=== PATIENT | female | born 1950 | race Caucasian/White ===

== ENCOUNTER 2020-12-11 13:09 | Observation (INO) ==
[2020-12-11] MEDS ORDERED: DILTIAZEM 50 MG/10 ML VIAL IV STA (13:36)
[2020-12-11] MEDS ORDERED: SODIUM CHLORIDE 0.9% 500 ML IV STA (13:36)
[2020-12-11] MEDS ORDERED: DILTIAZEM 100 MG VIAL.ADD IV ONE (13:37)
[2020-12-11] MEDS ORDERED: ONDANSETRON 4 MG/2 ML VIAL IV STA (13:37)
[2020-12-11] MEDS ORDERED: DILTIAZEM 25 MG/5 ML VIAL IV ONE (13:38)
[2020-12-11] MEDS: DILTIAZEM INJ 100 MG in SODIUM CHLORIDE 0.9% 100 ML IV SCH (13:55)
[2020-12-11 15:48] LABS: Basophils % 0.5 % (0.0-0.8); Eosinophils % 0.2 % (0.00-10.9); Hematocrit 36.1 VOL% (35.7-47.0); Hemoglobin 11.1 GM/DL (12.0-16.0); Immature Granulocytes % 0.5 %; Immature Granulocytes Absolute 0.02 #; Lymphocytes # 0.7 10*3/uL (1.4-4.0); Lymphocytes % 16.2 % (21.3-54.2); Mean Corpuscular HGB Conc 30.7 GM/DL (32-36); Mean Corpuscular Volume 90.9 FL (87-102); Mean Platelet Volume 10.1 FL (9.6-12.0); Monocytes % 10.8 % (1.7-12.7); Neutrophils % 71.8 % (38.7-73.9); Platelet Count 150 T/CUMM (130-400); Red Blood Count 3.97 MC/CUMM (3.8-5.5); Red Cell Distribution Width 14.5 % (9.3-17.3); White Blood Count 4.3 T/CUMM (4-12)
[2020-12-11 15:59] LABS: Bacteria,Urine Moderate /HPF (Few); Bilirubin,Urine Negative (Negative); Blood, Urine Large mg/dL (Negative); Glucose,Urine (UA) >=500 mg/dL (Negative); Ketones,Urine 20 mg/dL (Negative); Mucus,Urine Occasional /LPF (Occasional); Nitrite,Urine Negative (Negative); Protein,Urine 30 MG/DL; RBC,Urine 40 /HPF (0-4); Urine Appearance Slightly Hazy (Clear); Urine Color Yellow (Yellow); WBC,Urine 6 /HPF (0-6)
[2020-12-11 16:09] LABS: Calcium 8.4 MG/DL (8.5-10.1); Osmolality,Calculated 279.5 MOS/KG (273-304)
[2020-12-11] MEDS ORDERED: cefTRIAXone 1,000 MG in SODIUM CHLORIDE 0.9% 100 ML IV STA (16:16)
[2020-12-11 17:14] LABS: Atypical Lymphocytes Few; Band Neutrophils 2 % (0-10); Lymphocytes 21 % (20-55); Reactive Lymphocytes Few; Segmented Neutrophils 76 % (50-85); Total Cells Counted 100; Toxic Granulation 1+
[2020-12-11] MEDS ORDERED: GLUCAGON 1 MG VIAL IM PRN (17:14)
[2020-12-11] MEDS ORDERED: ONDANSETRON 4 MG/2 ML VIAL IV PRN (17:14)
[2020-12-11] MEDS ORDERED: DEXTROSE 50% 25 GM/50 ML VIAL IV PRN (17:14)
[2020-12-11] MEDS ORDERED: hydrALAZINE 20 MG/1 ML VIAL IV PRN (17:14)
[2020-12-11 17:15] LABS: Hypochromasia Slight; Microcytosis Slight; Ovalocytes Few; Platelet Estimate Normal
[2020-12-11 19:17] LABS: INR 2.9; PT Patient Result 29.1 SECS (9.8-11.9); Partial Thromboplastin Time 44.4 SECS (23.9-33.8)
[2020-12-11] MEDS: WARFARIN 10 MG TABLET PO SCH (21:12)
[2020-12-11] MEDS: INSULIN LISPRO 100 UNIT/ML SUBCUT SCH (21:14)
[2020-12-12 05:57] LABS: Basophils % 0.7 % (0.0-0.8); Eosinophils # 0.1 10*3/uL (0.0-0.87); Eosinophils % 2.9 % (0.00-10.9); Hematocrit 32.9 VOL% (35.7-47.0); Hemoglobin 10.5 GM/DL (12.0-16.0); Immature Granulocytes % 0.7 %; Immature Granulocytes Absolute 0.03 #; Lymphocytes # 1.2 10*3/uL (1.4-4.0); Lymphocytes % 25.7 % (21.3-54.2); Mean Corpuscular HGB Conc 31.9 GM/DL (32-36); Mean Corpuscular Volume 88.9 FL (87-102); Mean Platelet Volume 9.9 FL (9.6-12.0); Monocytes % 14.4 % (1.7-12.7); Neutrophils % 55.6 % (38.7-73.9); Platelet Count 154 T/CUMM (130-400); Red Cell Distribution Width 14.3 % (9.3-17.3); White Blood Count 4.5 T/CUMM (4-12)
[2020-12-12 06:22] LABS: Albumin 2.8 G/DL (3.4-5.0); Bilirubin,Total 0.5 MG/DL (0.2-1.0); Calcium 7.8 MG/DL (8.5-10.1); Eosinophils 1 % (0-10); Hypochromasia 1+; Lymphocytes 22 % (20-55); Microcytosis 1+; Osmolality,Calculated 276.8 MOS/KG (273-304); Platelet Estimate Adequate; Potassium 3.5 MMOL/L (3.5-5.1); Risk Ratio 4.34; Segmented Neutrophils 65 % (50-85); Thyroid Stimulating Hormone 1.7 uIU/ml (0.358-3.74); Total Cells Counted 100; Total Protein 6.4 G/DL (6.4-8.2); VLDL CHOLESTEROL 29.4 MG/DL
[2020-12-12] MEDS: INSULIN LISPRO 100 UNIT/ML SUBCUT SCH ×4 (07:39→20:54)
[2020-12-12] MEDS: lisinopriL 20 MG TABLET PO SCH (09:38)
[2020-12-12] MEDS: DILTIAZEM CD 180 MG CAPSULE PO SCH (09:38)
[2020-12-12] MEDS: FUROSEMIDE 20 MG TABLET PO SCH (09:38)
[2020-12-12] MEDS: SPIRONOLACTONE 25 MG TABLET PO SCH (09:39)
[2020-12-12] MEDS: PANTOPRAZOLE 40 MG TABLET PO SCH (09:39)
[2020-12-12] MEDS: LEVOTHYROXINE 50 MCG TABLET PO SCH (09:39)
[2020-12-12] MEDS: METOPROLOL SUCCINATE XL 25 MG TABLET PO SCH (09:39)
[2020-12-12] MEDS: DILTIAZEM INJ 100 MG in SODIUM CHLORIDE 0.9% 100 ML IV SCH (12:35)
[2020-12-12 15:41] LABS: Basophils % 0.6 % (0.0-0.8); Eosinophils # 0.2 10*3/uL (0.0-0.87); Eosinophils % 3.9 % (0.00-10.9); Hematocrit 33.4 VOL% (35.7-47.0); Hemoglobin 10.7 GM/DL (12.0-16.0); Immature Granulocytes % 0.2 %; Immature Granulocytes Absolute 0.01 #; Lymphocytes # 1.2 10*3/uL (1.4-4.0); Lymphocytes % 26.8 % (21.3-54.2); Mean Corpuscular Volume 88.8 FL (87-102); Mean Platelet Volume 9.5 FL (9.6-12.0); Neutrophils % 57.5 % (38.7-73.9); Platelet Count 156 T/CUMM (130-400); Red Blood Count 3.76 MC/CUMM (3.8-5.5); Red Cell Distribution Width 14.2 % (9.3-17.3); White Blood Count 4.6 T/CUMM (4-12)
[2020-12-12] MEDS ORDERED: cefTRIAXone 1,000 MG in SYRINGE 1 EACH IV SCH (16:00)
[2020-12-12 16:01] LABS: Osmolality,Calculated 284.5 MOS/KG (273-304); Potassium 3.8 MMOL/L (3.5-5.1)
[2020-12-12] MEDS: WARFARIN 10 MG TABLET PO SCH (17:16)
[2020-12-12 17:49] LABS: Atypical Lymphocytes Few; Eosinophils 4 % (0-10); Lymphocytes 25 % (20-55); Segmented Neutrophils 65 % (50-85); Total Cells Counted 100
[2020-12-12 17:50] LABS: Hypochromasia 2+; Platelet Estimate Normal
[2020-12-12] MEDS ORDERED: SIMVASTATIN 10 MG TABLET PO SCH (21:00)
[2020-12-13] MEDS: LEVOTHYROXINE 50 MCG TABLET PO SCH (06:05)
[2020-12-13] MEDS: DILTIAZEM INJ 100 MG in SODIUM CHLORIDE 0.9% 100 ML IV SCH (06:48)
[2020-12-13 08:09] VITALS: BP 123/78
[2020-12-13] MEDS: lisinopriL 20 MG TABLET PO SCH (09:31)
[2020-12-13] MEDS: PANTOPRAZOLE 40 MG TABLET PO SCH (09:31)
[2020-12-13] MEDS: SPIRONOLACTONE 25 MG TABLET PO SCH (09:32)
[2020-12-13] MEDS: FUROSEMIDE 20 MG TABLET PO SCH (09:32)
[2020-12-13] MEDS: DILTIAZEM CD 180 MG CAPSULE PO SCH (09:33)
[2020-12-13] MEDS: INSULIN LISPRO 100 UNIT/ML SUBCUT SCH (09:59)
[2020-12-13] MEDS: METOPROLOL SUCCINATE XL 25 MG TABLET PO SCH (10:06)
== END 2020-12-13 11:11 | disposition home or self-care (01) ==
LOC: EDSEX → N.EDINP 13:09 → N.ED 13:09 → SUATTDRO 17:14 → N.TELES 20:18
PROVIDERS: ADMIT Internal Medicine; ATTEND Emergency Medicine